=== PATIENT | female | born 1950 | race Hispanic/Latino ===

== ENCOUNTER 2018-11-06 11:20 | Inpatient (IN) | payer MEDICARE, OTHER ==
[~2018-11-06] VITALS: Ht 157.5 cm; Wt 70.3 kg
[2018-11-06] MEDS ORDERED: FERROUS SULFAT325 MG PO (12:28)
[2018-11-06] MEDS ORDERED: CLONIDINE HCL0.1 MG PO (12:28)
[2018-11-06] MEDS ORDERED: LOSARTAN POTAS100 MG PO (12:28)
[2018-11-06] MEDS ORDERED: METFORMIN HCL500 M2 PO (12:28)
[2018-11-06] MEDS ORDERED: LEVOTHYROXINE50 MCG PO (12:28)
[2018-11-06] MEDS ORDERED: AMLODIPINE BESY10 MG PO (12:28)
[2018-11-06] MEDS ORDERED: PANTOPRAZOLE SO40 MG PO (12:28)
[2018-11-06] MEDS ORDERED: HYDROCHLOROTHIA25 MG PO (12:28)
[2018-11-06] MEDS ORDERED: CRESTOR10 MG PO (12:28)
[2018-11-06] MEDS ORDERED: GLIPIZIDE ER5 MG PO (12:28)
[2018-11-06] MEDS ORDERED: JANUVIA100 MG PO (12:28)
[2018-11-06] MEDS ORDERED: SODIUM CHLORIDE 0.9% 1000ML 1,000 ML IV SCH (12:30)
--- NOTE | 2018-11-06 12:33 | Diagnostic Imaging Report ---
Examination: Single AP view of the chest. COMPARISON: None. INDICATION: Elevated blood sugar DISCUSSION: Lines/tubes: None. Lungs: The lungs are well inflated and clear. No pneumonia or pulmonary edema. Pleura: There is no pleural effusion or pneumothorax. Heart and mediastinum: The heart and the mediastinum are unremarkable. Bones and soft tissues: No acute bony abnormalities. IMPRESSION: 1. No acute cardiopulmonary abnormalities. Signed by: Dr. Jonatan Padilla M.D. on 11/06/2018 12:29 PM
[2018-11-06 12:36] LABS: BASOPHILS # (AUTO) 0.2 (0.0-0.1); BASOPHILS % 0.7 % (0.0-1.0); EOSINOPHILS % 4.6 % (0.0-6.0); HEMATOCRIT 32.5 % (34.2-44.1); HEMOGLOBIN 10.7 g/dL (12.0-16.0); LYMPHOCYTES # (AUTO) 1.2 (1.0-3.2); LYMPHOCYTES % 5.6 % (18.0-39.1); MEAN CORPUSCULAR HEMOGLOBIN 29.8 pg (28-32); MEAN CORPUSCULAR HGB CONC 32.9 g/dL (31-35); MEAN CORPUSCULAR VOLUME 90.5 fL (81-99); MONOCYTES # (AUTO) 1.7 (0.2-0.8); MONOCYTES % 7.7 % (4.4-11.3); NEUTROPHILS # (AUTO) 17.8 (2.1-6.9); NEUTROPHILS % 80.4 % (38.7-80.0); PLATELET COUNT 366 x10e3/uL (140-360); RED BLOOD COUNT 3.59 x10e6/uL (3.6-5.1); RED CELL DISTRIBUTION WIDTH 12.7 % (11.7-14.4)
[2018-11-06 12:48] LABS: INR 0.99; PROTHROMBIN TIME 13.6 seconds (11.9-14.5)
[2018-11-06 12:56] LABS: ALANINE AMINOTRANSFERASE 55 IU/L (0-55); ALBUMIN 3.6 g/dL (3.5-5.0); ALBUMIN/GLOBULIN RATIO 0.8 (0.8-2.0); ALKALINE PHOSPHATASE 76 IU/L (40-150); AMYLASE 40 U/L (25-125); BLOOD UREA NITROGEN 16 mg/dL (7-26); BUN/CREATININE RATIO 18 (6-25); CALCIUM 9.4 mg/dL (8.4-10.2); CARBON DIOXIDE 21 mmol/L (22-29); CHLORIDE 102 mmol/L (98-107); CREATINE KINASE 60 IU/L (29-168); CREATININE, SERUM 0.87 mg/dL (0.57-1.11); EST GLOMERULAR FILTRATION RATE > 60 ML/MIN (60-); GLUCOSE 205 mg/dL (74-118); LIPASE 9 U/L (8-78); SODIUM 133 mmol/L (136-145)
[2018-11-06] MEDS ORDERED: KETOROLAC TROMETHAMINE 30 MG/ML VIAL IV ONE (13:00)
[2018-11-06 13:10] LABS: COLOR,URINE YELLOW (YELLOW)
[2018-11-06 13:11] LABS: CLARITY,URINE CLEAR (CLEAR); LEUKOCYTE ESTERASE ,URINE NEGATIVE (NEGATIVE); NITRITE,URINE NEGATIVE (NEGATIVE); PROTEIN,URINE DIPSTICK NEGATIVE (NEGATIVE)
--- NOTE | 2018-11-06 13:11 | Diagnostic Imaging Report ---
Examination: Head CT without Contrast History: Dizziness. Loss of vision. Comparison studies: None Technique: Axial images were obtained from the skull base to the vertex. Coronal and sagittal images reconstructed from the axial data. Dose modulation, iterative reconstruction, and/or weight based adjustment of the mA/kV was utilized to reduce the radiation dose to as low as reasonably achievable. Intravenous contrast: None Findings: Scalp/skull: No abnormalities. Extra-axial spaces: No masses. No fluid collections. Brain sulci: Normal. Ventricles: Normal size and configuration. Parenchyma: Few hypodensities in the supratentorial white matter are small vessel ischemic changes. Lacunar vascular insult in the left putamen with density nearing that of cerebrospinal fluid. No masses, hemorrhage, acute or chronic cortical vascular insults. Sellar/suprasellar region: Partially empty non-expanded sella which is a nonspecific finding. Craniocervical junction: Patent foramen magnum. No Chiari one malformation. Incidental findings: Atherosclerotic calcifications in the carotid siphons . Impression: 1. No hydrocephalus, intracranial hemorrhage, or territorial vascular insult. 2. Mild supratentorial white matter microvascular ischemic changes. 3. 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 A preliminary report was provided by Dr. Lerma on 11/06/2018 1:10 PM. The images and preliminary report were reviewed and signed by Dr. Ingrid Bundy, neuroradiology faculty, on 11/06/2018 at 1658 hours. Signed by: Dr. Ingrid Bundy M.D. on 11/06/2018 4:58 PM
[2018-11-06 13:12] LABS: BACTERIA,URINE FEW /HPF; BILIRUBIN,URINE NEGATIVE (NEGATIVE); EPITHELIAL CELLS,URINE MODERATE /LPF; KETONES,URINE NEGATIVE (NEGATIVE); MUCUS,URINE FEW (RARE); URINE UROBILINOGEN 0.2 mg/dL (0.2 - 1); WBC,URINE (MAN) 0-5 /HPF (0-5)
[2018-11-06] MEDS ORDERED: CEFTRIAXONE SOD 1 GRAM/0.9% SOD CHL 50ML BAG IV SCH (14:30)
[2018-11-06] MEDS ORDERED: ASPIRIN 81 MG CHEW TAB PO ONE (14:30)
[2018-11-06] MEDS ORDERED: AZITHROMYCIN 500MG/SOD CHL 0.9% 250ML BAG IV SCH (14:30)
--- OUTSIDE RECORDS SUMMARY | 2018-11-06 14:38 | XMS REPORT ---
Author Author [facility] Address Unknown Phone Unavailable Care Team Providers Care Stock Layer Name Role Phone Domo BLAKE Unavailable Unavailable Problems This patient has no known problems. Allergies, Adverse Reactions, Alerts This patient has no known allergies or adverse reactions. Medications This patient has no known medications. Results Test Description Test Time Test Comments Text Results Atomic Results Result Comments CHEST SINGLE (PORTABLE) 2018-11-06 12:28:00 [place] [id number] Patient Name: YESENIA MOTA MR #: [id number] : 1950 Age/Sex: 68/F Req #: [id number] Adm Physician: Ordered by: CRUZ ORTEGA SUBWAY GUARD Report #: [id number] Location: ER Room/Bed: Procedure: [id number] DX/CHEST SINGLE (PORTABLE) Exam Date: 11/06/18 Exam Time: 1222 REPORT STATUS: Signed Examination: Single AP view of the chest. EDUIN RISON: None. INDICATION: Elevated blood sugar DISCUSSION: Lines/tubes: None. Lungs: The lungs are well inflated and clear. No pneumonia or pulmonary edema. Pleura: There is no pleural effusion or pneumothorax. Heart and mediastinum: The heart and the mediastinum are unremarkable. Bones and soft tissues: No acute bony abnormalities. IMPRESSION: 1. No acute cardiopulmonary abnormalities. Signed by: Dr. Tran Price M.D. on 11/06/2018 12:29 PM Dictated By: TRAN PRICE MD 1229 Transcribed By: KATERINE on 11/06/18 1229 COPY TO: CRUZ ORTEGA NP
[2018-11-06] MEDS ORDERED: CEFTRIAXONE SOD 1 GM/NS 50 ML 50 ML IV SCH (15:00)
[2018-11-06] MEDS: SODIUM CHLORIDE 0.9% 1000ML 1,000 ML IV SCH ×2 (15:15→17:50)
--- NOTE | 2018-11-06 15:27 | Diagnostic Imaging Report ---
EXAMINATION: CT scan of the chest without contrast. TECHNIQUE: Helical CT images of the chest were performed from the lung apices to the level of the adrenal glands. No intravenous contrast was administered Coronal and sagittal reformatted images were obtained.Dose modulation, iterative reconstruction, and/or weight based adjustment of the mA/kV was utilized to reduce the radiation dose to as low as reasonably achievable. COMPARISON: None. CLINICAL HISTORY:Evaluate for pneumonia DISCUSSION: ABSENCE OF INTRAVENOUS CONTRAST DECREASES SENSITIVITY FOR DETECTION OF FOCAL LESIONS AND VASCULAR PATHOLOGY. LINES/TUBES: None. LUNGS AND AIRWAYS: Interstitial lung disease with subpleural reticulations, architectural distortion, mild bronchiectasis, and honeycombing anteriorly for example axial image 36. PLEURA: No pneumothorax or pleural effusions. HEART AND MEDIASTINUM: The thyroid gland is normal. Heart size is enlarged. Coronary artery calcifications. Hiatal hernia. LYMPH NODES: No mediastinal, hilar or axillary lymphadenopathy. ABDOMEN: Limited contrast-enhanced views of the upper abdomen show no abnormality within the visualized liver, spleen, pancreas, or kidneys. The adrenal glands are normal. BONES AND SOFT TISSUES: No acute bony abnormalities. IMPRESSION: Fibrotic changes of the lungs in a nonspecific interstitial lung disease pattern. No pneumonia. Cardiomegaly with vascular calcifications. Signed by: Dr. Jonatan Padilla M.D. on 11/06/2018 3:24 PM
[2018-11-06] MEDS: ALBUTEROL SULF 0.083% NEB SOLN 3 ML NEB NEB SCH ×2 (15:41→19:45)
[2018-11-06] MEDS: IPRATROPIUM BROMIDE 0.02% 2.5 ML NEB NEB SCH (15:41)
[2018-11-06] MEDS ORDERED: AZITHROMYCIN 500MG/NS 250 ML 250 ML IV SCH (16:00)
[2018-11-06 16:37] VITALS: BP 166/74
[2018-11-06 16:57] VITALS: BP 166/74
[2018-11-06 17:06] VITALS: BP 166/74
--- NOTE | 2018-11-06 19:00 | NUR ---
received report from day nurse. patient is resting comfortably in bed. bed is in lowest position and call calvillo is within reach. will continue to monitor patient.
[2018-11-06] MEDS ORDERED: DEXTROSE 50% SYRINGE 50 ML IV PRN (19:30)
[2018-11-06 19:58] VITALS: BP 125/60
[2018-11-06 20:00] VITALS: BP 125/60
--- NOTE | 2018-11-06 20:19 | NUR ---
DOS: 11/06/18 History and PHysical cc: cough/sob HPI: 68yoF, PCP , started feeling ill, with cough and sob. Pt check glucose at home when not feeling well, it was 241. Pt had nonspecific chest discomfort and sob. Here found to have elevated cardiac enzyme. admitted for further eval/mgmt. PMH: DM, HTN PSHx: none ALlergies; se emr Fh/SH; marrie;d no cigs/illicits/etoh MEds; see MAR ROS: no f/c/s/N/V/D/MENDEZ/vision changes/leg pain/back pain/skin rash. v/s; rev'd PE: tired appearing anicteric ns1s2 mod bs soft nt nd no e/t a&ox3; aguilar skin dry n. affect labs/meds re'vd A/P: 68yoF Acute bronchitis HTN Iron deficiency anemia DM2 Hypothyroidism HLD GERD PLAN antibiotics serial enzymes cardiology consult hba1c/lipids pepcid/lovenox Partha Hancock MD, PhD.
--- NOTE | 2018-11-06 20:19 | NUR ---
DOS: 11/06/18 History and PHysical cc: cough/sob HPI: 68yoF, PCP , started feeling ill, with cough and sob. Pt check glucose at home when not feeling well, it was 241. Here found to have elevated cardiac enzyme. admitted for further eval/mgmt. PMH: DM, HTN PSHx: none ALlergies; se emr Fh/SH; marrie;d no cigs/illicits/etoh MEds; see MAR ROS: no f/c/s/N/V/D/MENDEZ/vision changes/leg pain/back pain/skin rash. v/s; rev'd PE: tired appearing anicteric ns1s2 mod bs soft nt nd no e/t a&ox3; aguilar skin dry n. affect labs/meds re'vd A/P: 68yoF Acute bronchitis HTN Iron deficiency anemia DM2 Hypothyroidism HLD GERD PLAN abx serial enzymes antiHTN meds hab1c/lipids pepcid/lovenox Partha Hancock MD, PhD.
[2018-11-06 20:25] LABS: CHOL/HDL RATIO 2.3 (3.0-3.6)
[2018-11-06] MEDS: INSULIN REGULAR, HUMAN 100 UNIT/1 ML 3ML VIAL SQ SCH (20:32)
[2018-11-07] VITALS (11 sets, daily range): BP systolic 106–135; BP diastolic 42–100
[2018-11-07] MEDS: ALBUTEROL SULF 0.083% NEB SOLN 3 ML NEB NEB SCH ×5 (00:10→15:20)
[2018-11-07] MEDS: IPRATROPIUM BROMIDE 0.02% 2.5 ML NEB NEB SCH ×3 (00:10→15:20)
[2018-11-07] MEDS: SODIUM CHLORIDE 0.9% 1000ML 1,000 ML IV SCH ×2 (02:59→12:30)
[2018-11-07 05:37] LABS: BASOPHILS # (AUTO) 0.1 (0.0-0.1); BASOPHILS % 0.8 % (0.0-1.0); EOSINOPHILS # (AUTO) 0.8 (0.0-0.4); EOSINOPHILS % 6.2 % (0.0-6.0); HEMATOCRIT 27.4 % (34.2-44.1); HEMOGLOBIN 9.1 g/dL (12.0-16.0); LYMPHOCYTES # (AUTO) 2.3 (1.0-3.2); LYMPHOCYTES % 17.2 % (18.0-39.1); MEAN CORPUSCULAR HEMOGLOBIN 29.9 pg (28-32); MEAN CORPUSCULAR HGB CONC 33.2 g/dL (31-35); MEAN CORPUSCULAR VOLUME 90.1 fL (81-99); MONOCYTES # (AUTO) 1.1 (0.2-0.8); MONOCYTES % 8.4 % (4.4-11.3); NEUTROPHILS # (AUTO) 8.8 (2.1-6.9); NEUTROPHILS % 66.9 % (38.7-80.0); PLATELET COUNT 304 x10e3/uL (140-360); RED BLOOD COUNT 3.04 x10e6/uL (3.6-5.1)
[2018-11-07 06:17] LABS: ANION GAP 12.6 mmol/L (8-16); BLOOD UREA NITROGEN 10 mg/dL (7-26); BUN/CREATININE RATIO 13 (6-25); CALCIUM 8.5 mg/dL (8.4-10.2); CARBON DIOXIDE 21 mmol/L (22-29); CHLORIDE 107 mmol/L (98-107); CREATININE, SERUM 0.75 mg/dL (0.57-1.11); EST GLOMERULAR FILTRATION RATE > 60 ML/MIN (60-); GLUCOSE 132 mg/dL (74-118); POTASSIUM 3.6 mmol/L (3.5-5.1); SODIUM 137 mmol/L (136-145)
--- NOTE | 2018-11-07 06:28 | NUR ---
lab called with an elevated troponin for the patient. notified. Received new orders for cardiology consult and also order to increase dose of lovenox. Consulted physician has been notified via telephone. physician states he will be in to see patient later today, will continue to monitor patient.
--- NOTE | 2018-11-07 06:52 | Diagnostic Imaging Report ---
EXAMINATION: CHEST SINGLE (PORTABLE) INDICATION: ^PNEMONIA COMPARISON: CT chest 11/06/2018. Chest x-ray 11/06/2018. FINDINGS: AP view TUBES and LINES: None. LUNGS: Lungs are moderately inflated. Diffuse pleural-based reticular opacities especially the lung bases is consistent with known interstitial lung disease. Questionable new focal airspace opacity in the right lung base. PLEURA: No pleural effusion or pneumothorax. HEART AND MEDIASTINUM: The cardiomediastinal silhouette is unremarkable. BONES AND SOFT TISSUES: No acute osseous lesion. Soft tissues are unremarkable. UPPER ABDOMEN: No free air under the diaphragm. IMPRESSION: 1. Questionable new focal airspace opacity in the right lung base and this may represent a pneumonia versus atelectasis. 2. Underlying interstitial lung disease. Signed by: Dr. Ted Conley M.D. on 11/07/2018 6:48 AM
--- NOTE | 2018-11-07 06:57 | NUR ---
report given to day nurse. patient is resting comfortably in bed. bed is in lowest position and call light is within reach.
[2018-11-07] MEDS: INSULIN REGULAR, HUMAN 100 UNIT/1 ML 3ML VIAL SQ SCH ×2 (07:30→11:30)
[2018-11-07] MEDS ORDERED: CLONIDINE HCL 0.1 MG TAB PO SCH (09:00)
[2018-11-07] MEDS ORDERED: LOSARTAN POTASSIUM 100 MG TAB PO SCH (09:00)
[2018-11-07] MEDS ORDERED: SITAGLIPTIN 100 MG TAB PO SCH (09:00)
[2018-11-07] MEDS ORDERED: LEVOTHYROXINE SODIUM 50 MCG TAB PO SCH (09:00)
[2018-11-07] MEDS ORDERED: FERROUS SULFATE 325 MG TAB PO SCH (09:00)
[2018-11-07] MEDS ORDERED: ENOXAPARIN SOD INJ 40 MG/0.4 ML SYR SC SCH ×2 (09:00→17:00)
[2018-11-07] MEDS ORDERED: HYDROCHLOROTHIAZIDE 25 MG TAB PO SCH (09:00)
[2018-11-07] MEDS ORDERED: PANTOPRAZOLE SOD 40 MG TABEC PO SCH (09:00)
[2018-11-07] MEDS ORDERED: IOPAMIDOL 370 MG/ML 200 ML INFUS..BTL INJ ONE (11:58)
[2018-11-07] MEDS ORDERED: FENTANYL CITRATE/PF 100MCG/2 ML INJ ONE (11:58)
[2018-11-07] MEDS ORDERED: HEPARIN SOD/SOD CHLORIDE 2,000 ML ONE (11:58)
[2018-11-07] MEDS ORDERED: LIDOCAINE HCL 2% LOCAL 20 ML VIAL ONE (11:58)
[2018-11-07] MEDS ORDERED: VERAPAMIL HCL 2.5 MG/ML 2 ML VIAL ONE (11:58)
[2018-11-07] MEDS ORDERED: MIDAZOLAM HCL 2 MG/2 ML VIAL ONE ×2 (11:58→12:54)
[2018-11-07] MEDS ORDERED: SODIUM CHLORIDE 0.9% 1000ML 1,000 ML ONE (11:58)
--- NOTE | 2018-11-07 12:13 | NUR ---
patient leaving unit for cath procedure, alert and oriented and on hospital bed
[2018-11-07] MEDS ORDERED: SODIUM CHLORIDE 0.9% 500ML 500 ML ONE (13:00)
[2018-11-07] MEDS ORDERED: HEPARIN 25,000U/0.45% NS 250ML 25,000 UNIT in Premix Bag 250 ML IV SCH (13:30)
[2018-11-07] MEDS ORDERED: HEPARIN IV SCH (13:30)
[2018-11-07] MEDS ORDERED: [UNRECOGNIZED DRUG - OTHER] IV SCH (13:30)
--- NOTE | 2018-11-07 16:27 | NUR ---
patient settled into room 194 icu with no difficulties. gcs 15. pt calm, supine following commands. right groin with sheath/balloon pump intact. rle wnl + pedal pulses bilaterally. patient denies pain. denies chest pain or shortness of pain. no s/s bleeding noted. report given to [facility].
[2018-11-07] MEDS ORDERED: METOPROLOL TARTRATE 25 MG TAB PO SCH (17:00)
[2018-11-07] MEDS ORDERED: SIMVASTATIN 20 MG TAB PO SCH (17:00)
--- NOTE | 2018-11-07 17:17 | NUR ---
[facility] report given to CV unit at [phone]. updated with plan of care. IABP intact and functional when patient discharged from [facility].
--- NOTE | 2018-11-07 23:29 | NUR ---
Discharge summary A/P: 68yoF Acute bronchitis HTN Iron deficiency anemia DM2 Hypothyroidism HLD GERD PLAN abx serial enzymes antiHTN meds hab1c/lipids pepcid/lovenox LHC showed Severe CAD with 99% occlusion in LAD and 100% occlusion in RCA. Transfer by helicopter to [facility] for surgical mgmt. condition: Fair d/c to [facility] f/u Medical and Surgical team in [facility] d/c>35mins; Partha Hancock MD, PhD.
--- NOTE | 2018-11-08 04:51 | Consultation ---
DATE OF CONSULTATION: 11/07/2018 Cardiology Consultation REASON FOR CONSULTATION: Chest pain. HISTORY OF PRESENT ILLNESS: This is a 68-year-old woman with history of hypertension, hyperlipidemia, and diabetes mellitus, who presents for complaints of vision changes. The patient reports she was seated yesterday when she felt her vision go blurry and felt like she was going to pass out. She denies any loss of consciousness. This lasted approximately 3 minutes. She denied any prodromal symptoms. Because of these symptoms, she presented to the ER for further evaluation. Of note, the patient indicates she has been short of breath for the last month with dyspnea on exertion and walking half a block. She also endorses symptoms consistent of orthopnea and PND. In addition, she states she has been having central chest pain with activity for the last month 8/10 in severity. This does resolve with rest and is associated with shortness of breath as well as radiation to the left arm. She denies any nausea or diaphoresis. REVIEW OF SYSTEMS: Negative as per HPI. PAST MEDICAL HISTORY: 1. Hypertension. 2. Hyperlipidemia. 3. Diabetes mellitus. PAST SURGICAL HISTORY: Denies. ALLERGIES: NO KNOWN DRUG ALLERGIES. MEDICATIONS: Please see EMR. SOCIAL HISTORY: She smoked a pack and half a day for 20 years. She quit three years ago. No alcohol or drugs. FAMILY HISTORY: Pertinent for two sisters and mother with heart disease. PHYSICAL EXAMINATION: VITAL SIGNS: Temperature 98.4 degrees, pulse 75, respiratory rate 16, blood pressure 135/62, and oxygen saturation 96%. GENERAL: Well-developed, well-nourished woman, in no acute distress. HEENT: Normocephalic, atraumatic. Pupils equal. No scleral icterus. NECK: Supple. No thyroid or cervical lymphadenopathy. No carotid bruits. LUNGS: Clear to auscultation bilaterally. No wheeze or crackles. CARDIOVASCULAR: Normal rate. Regular rhythm. No murmur. Normal S1, S2. ABDOMEN: Soft and nontender. EXTREMITIES: No edema. LABORATORY DATA: WBC 13.16, hemoglobin 9.1, hematocrit 27.4, and platelets 304. Sodium 137, potassium 3.6, chloride 107, CO2 of 21, BUN 10, creatinine 0.75. Troponin 1.144. IMPRESSION: 1. NSTEMI 2. Hypertension 3. Hyperlipidemia 4. Diabetes mellitus RECOMMENDATIONS: Patient ruled in for myocardial infarction. Plan for cardiac catheterization today. Continue ASA and Lovenox. Continue current cardiac medications otherwise. Obtain echo. Further recommendations to follow. Thank you for this consult. Debra Huddleston MD ABS/MODL /[id number] MTDThang
--- NOTE | 2018-11-08 10:52 | Operative Report ---
DATE OF PROCEDURE: 11/07/2018 SURGEON: Lefty Wade MD CARDIAC LAND MANAGER PROCEDURE NOTE INDICATION: [id number] elevation myocardial infarction. PROCEDURES PERFORMED: 1. Left heart catheterization, selective coronary angiography. 2. Placement of intra-aortic balloon pump. COMPLICATIONS: None. RECOMMENDATIONS: Emergency transfer for coronary artery bypass surgery. DESCRIPTION OF PROCEDURE: Access was obtained in the right femoral artery. A 6-Kosovan sheath was placed. Coronary angiography demonstrated a dual ostia of the left anterior descending and circumflex artery. Circumflex was dominant vessel with moderate for 30% to 50% stenosis. Left anterior descending artery proximal and ostial 99% stenosis with THEA-2 flow. Right coronary artery is occluded in its midportion with grade 4 collaterals filling the right posterior descending artery. Left internal mammary artery was widely patent. Right groin sheath was replaced with a 8.5-Kosovan sheath. A 34 mL intra-aortic balloon pump was inserted. Augmentation was begun with excellent augmentation and pressures. Patient sheath was secured in place. The patient was transferred to [facility] in the [facility] for emergency coronary artery bypass surgery. Lefty Wade MD KSB/MODL /[id number]
== END 2018-11-07 17:53 | disposition short-term general hospital (02) | DRG 270 ==
LOC: ER 11:20 → ERHOLD 14:22 → IMCU 16:09 → OBSVTOIN 11-07 10:23 → ICU 11-07 16:02
PROVIDERS: ADMIT Internal Medicine; ATTEND Internal Medicine
PROC: 5A02210 Assistance with Cardiac Output using Balloon Pump, Continuous (ICD-10-PCS; principal; 2018-11-07)
PROC: 4A023N7 Measurement of Cardiac Sampling and Pressure, Left Heart, Percutaneous Approach (ICD-10-PCS; 2018-11-07)
PROC: B2111ZZ Fluoroscopy of Multiple Coronary Arteries using Low Osmolar Contrast (ICD-10-PCS; 2018-11-07)
PROC: B2151ZZ Fluoroscopy of Left Heart using Low Osmolar Contrast (ICD-10-PCS; 2018-11-07)
DX: I21.4 Non-ST elevation (NSTEMI) myocardial infarction (principal); J15.9 Unspecified bacterial pneumonia; I25.10 Atherosclerotic heart disease of native coronary artery without angina pectoris; E11.65 Type 2 diabetes mellitus with hyperglycemia; R07.9 Chest pain, unspecified; Z83.3 Family history of diabetes mellitus; Z82.49 Family history of ischemic heart disease and other diseases of the circulatory system; I10 Essential (primary) hypertension; E78.5 Hyperlipidemia, unspecified; J20.9 Acute bronchitis, unspecified; D50.9 Iron deficiency anemia, unspecified; E03.9 Hypothyroidism, unspecified; K21.9 Gastro-esophageal reflux disease without esophagitis; Z79.84 Long term (current) use of oral hypoglycemic drugs
CPT/HCPCS: 33967; 93454; C1766; C1769; 33970; 36415; 70450; 71045; 71250; 80048; 80053; 80061; 81001; 82150; 82550; 82553; 82948; 83036; 83690; 84484; 85025; 85610; 85730; 87040; 93005; 94640; 99284; G0378; J0456; J0696; J1644; J1650; J1817; J1885; J2001; J2250; J3010; J7030; J7040; Q9967

== ENCOUNTER → 2020-10-31 | Day surgery (SDC) | payer OTHER ==
[2020-10-28 15:35] LABS: BASOPHILS # (AUTO) 0.1 (0.0-0.1); BASOPHILS % 0.7 % (0.0-1.0); EOSINOPHILS # (AUTO) 0.5 (0.0-0.4); EOSINOPHILS % 5.7 % (0.0-6.0); HEMATOCRIT 28.1 % (34.2-44.1); HEMOGLOBIN 9.1 g/dL (12.0-16.0); LYMPHOCYTES # (AUTO) 2.2 (1.0-3.2); MEAN CORPUSCULAR HEMOGLOBIN 29.4 pg (28-32); MEAN CORPUSCULAR HGB CONC 32.4 g/dL (31-35); MEAN CORPUSCULAR VOLUME 90.6 fL (81-99); MONOCYTES # (AUTO) 0.8 (0.2-0.8); MONOCYTES % 10.2 % (4.4-11.3); NEUTROPHILS # (AUTO) 4.6 (2.1-6.9); NEUTROPHILS % 55.9 % (38.7-80.0); PLATELET COUNT 327 x10e3/uL (140-360); RED CELL DISTRIBUTION WIDTH 12.5 % (11.7-14.4)
[~2020-10-31] MED LIST: AMLODIPINE BESY10 MG PO; ASPIRIN81 MG PO; CLONIDINE HCL0.1 MG PO; COREG12.5 MG PO; CRESTOR10 MG PO; FENTANYL CITRATE/PF 100MCG/2 ML INJ ONE; FERROUS SULFAT325 MG PO; FUROSEMIDE40 MG PO; GLIPIZIDE ER5 MG PO; HYDROCHLOROTHIA25 MG PO; JANUVIA100 MG PO; LEVOTHYROXINE50 MCG PO; LIDOCAINE HCL 2% LOCAL INJ 5 ML SDV VIAL INJ ONE; LOSARTAN POTAS100 MG PO; METFORMIN HCL500 M2 PO; MIDAZOLAM HCL 2 MG/2 ML VIAL ONE; PANTOPRAZOLE SO40 MG PO; PLAVIX75 MG PO; PROPOFOL IV EMULSION 10 MG/ML 20 ML VIAL ONE
[2020-10-31 07:45] VITALS: BP 137/67
== END | disposition home or self-care (01) ==
LOC: OR 05:50
PROVIDERS: ATTEND Internal Medicine Gastroenterology
DX: R13.10 Dysphagia, unspecified (principal); K63.5 Polyp of colon; K29.50 Unspecified chronic gastritis without bleeding; K44.9 Diaphragmatic hernia without obstruction or gangrene; K57.30 Diverticulosis of large intestine without perforation or abscess without bleeding; K64.8 Other hemorrhoids; Z71.3 Dietary counseling and surveillance; E11.9 Type 2 diabetes mellitus without complications; I10 Essential (primary) hypertension; I25.810 Atherosclerosis of coronary artery bypass graft(s) without angina pectoris; F17.200 Nicotine dependence, unspecified, uncomplicated; Z01.810 Encounter for preprocedural cardiovascular examination; Z01.812 Encounter for preprocedural laboratory examination; Z20.822 Contact with and (suspected) exposure to COVID-19; Z79.82 Long term (current) use of aspirin; Z79.02 Long term (current) use of antithrombotics/antiplatelets; Z79.84 Long term (current) use of oral hypoglycemic drugs; Z95.1 Presence of aortocoronary bypass graft
CPT/HCPCS: 36415 ×2; 43233; 43239; 45380; 82948; 85025; 93005; J2001; J2250; J2704; J3010; U0002; 45378

== ENCOUNTER 2022-10-19 16:34 | Emergency (ER) | payer MEDICARE ==
[~2022-10-19] VITALS: Ht 157.5 cm; Wt 70.3 kg
[~2022-10-19 16:34] MED LIST changes: -FENTANYL CITRATE/PF 100MCG/2 ML INJ ONE; -LIDOCAINE HCL 2% LOCAL INJ 5 ML SDV VIAL INJ ONE; -MIDAZOLAM HCL 2 MG/2 ML VIAL ONE; -PROPOFOL IV EMULSION 10 MG/ML 20 ML VIAL ONE
== END 2022-10-19 16:56 | disposition home or self-care (01) ==
LOC: ER 16:38
DX: E11.65 Type 2 diabetes mellitus with hyperglycemia (principal); E78.00 Pure hypercholesterolemia, unspecified; R05.9 Cough, unspecified; Z79.02 Long term (current) use of antithrombotics/antiplatelets; Z79.82 Long term (current) use of aspirin; Z79.84 Long term (current) use of oral hypoglycemic drugs; Z79.899 Other long term (current) drug therapy; Z86.73 Personal history of transient ischemic attack (TIA), and cerebral infarction without residual deficits
CPT/HCPCS: 36415; 82948; 99282

== ENCOUNTER → 2023-08-12 | Day surgery (SDC) | payer MEDICARE ==
[2023-08-09 14:24] LABS: BASOPHILS % 0.5 % (0.0-1.0); EOSINOPHILS # (AUTO) 0.8 (0.0-0.4); HEMATOCRIT 30.2 % (34.2-44.1); HEMOGLOBIN 9.8 g/dL (12.0-16.0); LYMPHOCYTES # (AUTO) 2.1 (1.0-3.2); LYMPHOCYTES % 25.4 % (18.0-39.1); MEAN CORPUSCULAR HGB CONC 32.5 g/dL (31-35); MEAN CORPUSCULAR VOLUME 92.4 fL (81-99); MONOCYTES # (AUTO) 0.8 (0.2-0.8); MONOCYTES % 8.9 % (4.4-11.3); NEUTROPHILS # (AUTO) 4.7 (2.1-6.9); NEUTROPHILS % 55.8 % (38.7-80.0); PLATELET COUNT 342 x10e3/uL (140-360); RED BLOOD COUNT 3.27 x10e6/uL (3.6-5.1); RED CELL DISTRIBUTION WIDTH 12.2 % (11.7-14.4); WHITE BLOOD COUNT 8.44 x10e3/uL (4.8-10.8)
[~2023-08-12] MED LIST changes: +DIOVAN160 MG PO; +EPHEDRINE SULFATE INJ 50 MG/ML VIAL ONE; +FEROSUL325 MG PO; +LACTATED RINGER'S 1,000 ML ONE; +LIDOCAINE HCL 2% LOCAL INJ 5 ML SDV VIAL INJ ONE; +PROPOFOL IV EMULSION 10 MG/ML 20 ML VIAL ONE
[2023-08-12 09:35] VITALS: BP 127/74; PULSE 76; RESP 18; O2SAT 97
== END | disposition home or self-care (01) ==
LOC: OR 06:13
PROVIDERS: ATTEND Internal Medicine Gastroenterology
DX: D50.9 Iron deficiency anemia, unspecified (principal); K29.50 Unspecified chronic gastritis without bleeding; K21.9 Gastro-esophageal reflux disease without esophagitis; K44.9 Diaphragmatic hernia without obstruction or gangrene; K64.8 Other hemorrhoids; I25.810 Atherosclerosis of coronary artery bypass graft(s) without angina pectoris; E78.5 Hyperlipidemia, unspecified; E11.9 Type 2 diabetes mellitus without complications; E03.9 Hypothyroidism, unspecified; Z01.810 Encounter for preprocedural cardiovascular examination; Z01.812 Encounter for preprocedural laboratory examination; Z79.02 Long term (current) use of antithrombotics/antiplatelets; Z79.82 Long term (current) use of aspirin; Z79.84 Long term (current) use of oral hypoglycemic drugs; Z95.1 Presence of aortocoronary bypass graft; Z87.891 Personal history of nicotine dependence
CPT/HCPCS: 36415 ×2; 43239; 45378; 82948; 85025; 88305; 88342; 93005; J2001; J2704; J7121

== ENCOUNTER 2025-02-26 11:37 | Emergency (ER) | payer MEDICARE ==
[~2025-02-26] VITALS: Ht 154.9 cm; Wt 60.3 kg
[~2025-02-26 11:37] MED LIST changes: -EPHEDRINE SULFATE INJ 50 MG/ML VIAL ONE; -LACTATED RINGER'S 1,000 ML ONE; -LIDOCAINE HCL 2% LOCAL INJ 5 ML SDV VIAL INJ ONE; -PROPOFOL IV EMULSION 10 MG/ML 20 ML VIAL ONE
[2025-02-26 12:38] VITALS: TEMP 98
[2025-02-26 13:30] VITALS: PULSE 63; RESP 18
[2025-02-26] MEDS: ACETAMINOPHEN 325 MG TAB PO ONE (13:44)
[2025-02-26 14:52] VITALS: BP 160/65; PULSE 64; RESP 18; TEMP 98; O2SAT 97
== END 2025-02-26 14:28 | disposition home or self-care (01) ==
LOC: FSED 13:24
DX: R07.89 Other chest pain (principal); S20.212A Contusion of left front wall of thorax, initial encounter; W01.198A Fall on same level from slipping, tripping and stumbling with subsequent striking against other object, initial encounter; Y93.01 Activity, walking, marching and hiking; Y92.89 Other specified places as the place of occurrence of the external cause; I10 Essential (primary) hypertension; E11.9 Type 2 diabetes mellitus without complications; E78.5 Hyperlipidemia, unspecified; Z86.73 Personal history of transient ischemic attack (TIA), and cerebral infarction without residual deficits; E78.00 Pure hypercholesterolemia, unspecified; Z95.1 Presence of aortocoronary bypass graft
CPT/HCPCS: 71046; 99283